=== PATIENT | male | born 1945 | race Caucasian/White ===

== ENCOUNTER → 2018-02-08 18:45 | Outpatient (CLI) | payer MEDICARE, OTHER, SELFPAY | PROVIDERS: Visit Provider Nurse Practitioner Adult Health | DX: R31.0 Gross hematuria (principal) | CPT/HCPCS: 87077; 87086; 87088; 87186 ==

== ENCOUNTER → 2018-02-25 18:40 | Outpatient (CLI) | payer MEDICARE, OTHER, SELFPAY | PROVIDERS: Visit Provider Urology | DX: R82.99 Other abnormal findings in urine (principal) | CPT/HCPCS: 87077; 87086; 87088; 87186 ==

== ENCOUNTER → 2020-07-31 | Outpatient (CLI) | payer MEDICARE, OTHER, SELFPAY | END | disposition home or self-care (01) | LOC: LABSPEC 16:33 | PROVIDERS: Referring Provider Urology; Visit Provider Urology | DX: N39.0 Urinary tract infection, site not specified (principal) | CPT/HCPCS: 87077; 87086; 87088; 87186 ==

== ENCOUNTER → 2020-12-18 | Outpatient (CLI) | payer MEDICARE, OTHER, SELFPAY | END | disposition home or self-care (01) | LOC: LABSPEC 15:50 | PROVIDERS: Referring Provider Urology; Visit Provider Urology | DX: N39.0 Urinary tract infection, site not specified (principal) | CPT/HCPCS: 87077; 87086; 87088; 87186 ==

== ENCOUNTER → 2021-01-08 | Outpatient (CLI) | payer MEDICARE, OTHER, SELFPAY | END | disposition home or self-care (01) | LOC: LABSPEC 15:53 | PROVIDERS: Referring Provider Urology; Visit Provider Urology | DX: N40.1 Benign prostatic hyperplasia with lower urinary tract symptoms (principal) | CPT/HCPCS: 87077; 87086; 87088; 87186 ==

== ENCOUNTER 2021-01-23 12:20 | Day surgery (SDC) | payer MEDICARE, OTHER, SELFPAY ==
--- NOTE | 2021-01-21 12:59 | EKG12_ITS ---
Test Reason : PREOP Blood Pressure : / mmHG Vent. Rate : 063 BPM Atrial Rate : 063 BPM P-R Int : 140 ms QRS Dur : 092 ms QT Int : 386 ms P-R-T Axes : 036 075 078 degrees QTc Int : 395 ms Normal sinus rhythm Normal ECG Confirmed by JENNIE CROFT, LUNA ([id number]), newspaper photo editor TIFFANY WALKER ([id number]) on 01/23/2021 9:33:25 AM Referred By: Leeroy Olivera Confirmed By:LUNA SCHNEIDER MD
[2021-01-21 13:32] LABS: Hematocrit 50.7 % (40-54); Hemoglobin 16.3 g/dL (13.0-16.5); Mean Corp Hgb Conc 32.1 g/dL (32-36); Mean Corpuscular Volume 105.6 fL (80-94); Mean Platelet Vol. 10.4 fl (6.2-12.0); Platelet Count 166 K/mm3 (150-450); RBC Distribution Width CV 13.6 % (11.6-14.6); White Blood Count 10.7 K/mm3 (4.4-11.0)
[2021-01-21 13:58] LABS: Anion Gap 5 (5-15); BUN 31 mg/dL (7-18); BUN/Creat Ratio 14.5 RATIO (10-20); Calcium,Total 8.9 mg/dL (8.5-10.1); Chloride 106 mmol/L (98-107); Creatinine, Serum 2.14 mg/dL (0.70-1.30); EST Glomerular Filtration Rate 32 mL/min (>60); Est Glom Filt Rate - Afr Amer 39 mL/min (>60); Glucose 107 mg/dL (74-106); Potassium 4.6 mmol/L (3.5-5.1); Sodium Level 137 mmol/L (136-145)
[2021-01-23] VITALS (13 sets, daily range): BP systolic 108–157; BP diastolic 55–82; PULSE 66–79; RESP 16–18; TEMP 36.4–37.1; O2SAT 80–100; BMI 25.0
--- NOTE | 2021-01-23 | PROS_PTH ---
PATIENT: SPENSER ZUNIGA LOC: [facility] [place] U#:[id number] AGE/SX: 75/M ROOM: RE01/23/[address]: Dr. Leeroy Olivera MD : [id number] BED: DIS: 01/24/2021 SPEC #: [id number] RECD: 01/24/21 09:08 STATUS: RAMA WITT #: [id number] JANET: 01/23/21 00:[address]: Leeroy Olivera DEPT: SURGICAL PATHOLOGY RECD BY: Adam Peters ENTERED: 01/24/21 09:08 SP TYPE: TURP OTHR DR: Dr. Carissa Ayala MD Tissues: Prostate, NOS Procedures: Surgery Specimen Level IV HEADER OPERATION: Cysto, TUR prostate, [employer] PRE-OP DIAGNOSIS: BPH with obstruction TISSUE SUBMITTED: Prostate chips MICROSCOPIC DIAGNOSIS Prostate, transurethral resection: Benign nodular hyperplasia, glandular and stromal types. Chronic prostatitis. Focal acute prostatitis. Urothelium with mild chronic inflammation. AM:syd 01/25/2021 MICROSCOPIC DESCRIPTION Slides are reviewed. GROSS DESCRIPTION Received is one container labeled with the patient's name and designated prostate chips. The specimen consists of multiple irregular fragments of pink-ruiz, rubbery, soft tissue that in aggregate weigh 3.7 gm and measure in aggregate 9 x 3 x 0.2 cm. Also present in the specimen container are multiple black calculi ranging in size from 0.1 to 0.2 cm. The soft tissue is submitted in its entirety in three cassettes. / AM:syd 01/24/21 TC:2 CPT: 52101
[2021-01-23] MEDS: Lactated Ringers 1,000 ML 100 ML IV ×2 (12:50→17:51)
--- NOTE | 2021-01-23 15:20 | PCM.HP.STD ---
Problem List (1) BPH with obstruction/lower urinary tract symptoms Status: Acute History of Present Illness Date of Admission: 01/23/21 Chief Complaint: BPH with obstruction The patient is a 75 year old male with enlarged prostate presents today for transurethral resection of the prostate. Past Medical History Allergies codeine Allergy (Verified 01/23/21 12:57) Swelling bandaids Adverse Reaction (Uncoded 01/23/21 12:57) skin break down Home Medications: Ambulatory Orders Medication Instructions Recorded Albuterol IH (ProAir) [Proair Hfa 1 - 2 puff INHALATION Q6H PRN PRN 01/16/21 (SP)Vent Pts] Allopurinol [Zyloprim] 100 mg PO DAILYCM 01/16/21 Aspirin [Aspirin EC] 81 mg PO BID 01/16/21 Bifidobacterium Infantis [Align] 4 mg PO QHS 01/16/21 Cholecalciferol (VIT D3) [Vitamin 1,000 unit PO DAILY 01/16/21 D] Cilostazol [Pletal] 50 mg PO BIDAC 01/16/21 Diltiazem CD [Cardizem CD] 180 mg PO QHS 01/16/21 Lovastatin [Mevacor] 20 mg PO DAILY 01/16/21 Metoprolol Tartrate [Lopressor 100 mg PO BID 01/16/21 (Beta Chris)] Multivitamin with Minerals 1 ea PO DAILY 01/16/21 [Multiple Vitamin] Omeprazole [Prilosec] 20 mg PO DAILY 01/16/21 Pyridoxine HCl (Vitamin B6) 100 mg PO DAILY 01/16/21 [Vitamin B-6] Sodium Bicarbonate 650 mg PO DAILY 01/16/21 Terazosin HCl [Hytrin] 2 mg PO QHS 01/16/21 Umeclidinium Brm/Vilanterol Tr 1 puff IH QHS 01/16/21 [Anoro Ellipta 62.5-25 Mcg INH] Surgical History: no surgical history Smoking Status: Current every day smoker Tobacco Use: Cigarettes Review of Systems Constitutional: Denies: Chills, Fever, Weight Change HEENT: Denies: Head Aches, Sinus Congestion, Sinus Drainage Cardiovascular: Denies: Chest Pain, Palpitations Respiratory: Denies: Cough, Shortness of breath at rest, Sputum production Gastrointestinal: Denies: Abdominal Pain, Nausea, Vomiting Genitourinary: Denies: Dysuria Musculoskeletal: Denies: Joint Pain, Joint Tenderness Skin: Denies: Rash, Wounds Neurological: Denies: Numbness, Tingling, Focal weakness Psychiatric: Denies: Anxiety, Depression, Homicidal Ideations, Suicidal Ideations Hematologic/ Lymphatic: Denies: Easy Bruising, Easy Bleeding VTE Information - Inpt Only VTE Present on Admission: No VTE Mechan Device Prophylaxis: SCD's - Physical Exam Vitals/I&O's: Vital Signs Temp Pulse Resp BP Pulse Ox 98.5 F 67 18 144/73 H 94 01/23/21 12:58 01/23/21 12:58 01/23/21 12:58 01/23/21 12:58 01/23/21 12:58 Oxygen Delivery Method Room Air Weight: 72.6 kg Body Mass Index (BMI) 25.0 General: Alert, Oriented x3, Cooperative HEENT: Atraumatic, PERRLA, EOMI, Normocephalic Neck: Supple, No JVD, Negative Carotid Bruits Lungs: Clear to auscultation, Normal air movement Cardiovascular: Regular rate, No murmurs Abdomen: Bowel Sounds Present, Soft, Non Tender Extremities: No edema, Capillary Refill Less than 3 Seconds Skin: No rashes, No breakdown Musculoskeletal: No Tenderness to Palpation of Joints or Extremities Neurological: Cranial nerves II-XII grossly intact Psych/Mental Status: Normal Affect, Appropriate Microbiology Past 72 Hours 01/21/21 13:15 Interface Orders SARS-CoV-2 Antigen (Rapid) - Final Current Medications Lactated Ringer's () 1,000 mls @ 100 mls/hr IV .Q10H OUMAR Last Admin: 01/23/21 12:50 Dose: 100 mls/hr Documented by: Assessment/Plan All Active Problems BPH with obstruction/lower urinary tract symptoms (Acute) Plan to proceed with a TURP
[2021-01-23] MEDS: Cefazolin 2 GM in 0.9% Normal Saline 100 ML IV (15:21)
--- NOTE | 2021-01-23 15:26 | DCINST_ITS ---
Discharge Diet: Light diet - advance as tolerated Discharge Activity: Return to Normal Activity Call your doctor if your incision/area has: Sudden Increased Bleeding, Increased Pain/ Swelling, Increased Redness Call your doctor if you observe: Fever of 101 or Higher Instructions: Transurethral Resection of the Prostate (TURP): Home Recovery Allergies/Adverse Reactions: Allergies codeine Allergy (Verified 01/23/21 12:57) Swelling bandaids Adverse Reaction (Uncoded 01/23/21 12:57) skin break down Medications to take at Discharge Albuterol IH (ProAir) [Proair Hfa (SP)Vent Pts] 1 - 2 puff INHALATION Q6H PRN PRN 01/16/21 Allopurinol [Zyloprim] 100 mg PO DAILYCM 01/16/21 Aspirin [Aspirin EC] 81 mg PO BID 01/16/21 Bifidobacterium Infantis [Align] 4 mg PO QHS 01/16/21 Cholecalciferol (VIT D3) [Vitamin D] 1,000 unit PO DAILY 01/16/21 Cilostazol [Pletal] 50 mg PO BIDAC 01/16/21 Diltiazem CD [Cardizem CD] 180 mg PO QHS 01/16/21 Lovastatin [Mevacor] 20 mg PO DAILY 01/16/21 Metoprolol Tartrate [Lopressor (Beta Chris)] 100 mg PO BID 01/16/21 Multivitamin with Minerals [Multiple Vitamin] 1 ea PO DAILY 01/16/21 Omeprazole [Prilosec] 20 mg PO DAILY 01/16/21 Pyridoxine HCl (Vitamin B6) [Vitamin B-6] 100 mg PO DAILY 01/16/21 Sodium Bicarbonate 650 mg PO DAILY 01/16/21 Terazosin HCl [Hytrin] 2 mg PO QHS 01/16/21 Umeclidinium Brm/Vilanterol Tr [Anoro Ellipta 62.5-25 Mcg INH] 1 puff IH QHS 01/16/21 Ciprofloxacin [Cipro] 500 mg PO BID #10 tablet 01/23/21 Ibuprofen 600 mg PO Q6H PRN PRN #20 tablet 01/23/21 The following prescriptions were given: Ciprofloxacin [Cipro] 500 mg PO BID #10 tablet Transmission Status: Received by [id number] Ibuprofen 600 mg PO Q6H PRN PRN #20 tablet PRN Reason: Pain 1-10 Or Fever Transmission Status: Received by [id number] Primary Care Physician: Carissa Ayala MD [Primary Care Provider] - Test Results: Test results from this visit will be discussed in further detail at your follow- up appointment, if applicable. Please Follow Up With: Leeroy Olivera MD When: in 2 weeks, please call to make an appointment.
--- NOTE | 2021-01-23 16:08 | OP.PCM_ITS ---
Problem List (1) BPH with obstruction/lower urinary tract symptoms Status: Acute Report of Operation Date of Procedure: 01/23/21 Pre-Operative Diagnosis: BPH with obstruction Post-Operative Diagnosis: Same Surgery/Procedure Performed:: TURP Description of Surgical Findings:: In the preoperative setting I discussed with the patient how the surgery would be done with expect afterwards. We discussed how a prostate resection is done and we discussed the risk of the surgery including, bleeding, infection, retrograde ejaculation, changes with ejaculation or intercourse,. We discussed the possibility that the resection of the prostate may not alleviate his urinary symptoms. We discussed the small risk of developing scar tissue along the urethral channel and strictures. We also discussed the chance of the prostate could grow back and he may need further surgery or treatment in the future for prostate problems. Patient was taken back to the operating room, timeout procedure was performed, he was identified and marked and placed on the operating room table. He underwent general anesthesia. He was placed in dorsolithotomy position. Penis and testicles were prepped and draped in usual sterile fashion. Went into the bladder using the visual obturator with a resectoscope. Once inside the bladder identified the right and left ureteral orifice. I then identified the prostate and the anatomy of the prostate. I marked out the area of the sphincter and the verumontanum was identified. I then proceeded with the prostate resection first resected the median lobe. And then resected the right lobe of the prostate. Then to resect the left lobe of the prostate. I then resected the apical tissue of the prostate. Made sure that there was no injury to the sphincter or the verumontanum was still intact. At the end of the resection all the chips were Ellik out of the bladder. I then identified the left and right ureteral orifice and these were confirmed to be in good position and effluxing and not injured. The resectoscope was removed, a 22 Lithuanian catheter was placed into the bladder on continuous irrigation. And the urine was fairly light pink color and draini ng normally. He was taken back to the PACU in good condition. Type of Anesthesia:: General Drains: 22fr 3 way - Admit VTE Documentation VTE Present on Admission: No VTE Mechan Device Prophylaxis: SCD's
--- NOTE | 2021-01-23 18:23 | SUR.PHASEI ---
Patient held in PACU after recovery because patient's room was not clean and available at the time. VSS. Patient was monitored throughout stay. CBI managed, clear, no clots.
[2021-01-23] MEDS: 0.9% Normal Saline 1,000 ML 75 ML IV (19:09)
[2021-01-23] MEDS: Metoprolol Tartrate 100 MG Tablet PO (21:06)
[2021-01-23] MEDS: Docusate Sodium 100 MG Capsule PO (21:07)
[2021-01-23] MEDS: Aspirin E.C. 81 MG Tablet PO (21:07)
[2021-01-23] MEDS: Ibuprofen 600 MG Tablet PO (21:07)
[2021-01-23] MEDS: Atorvastatin Calcium 10 MG Tablet PO (21:08)
[2021-01-23] MEDS: Cilostazol 50 MG Tablet PO (21:08)
[2021-01-23] MEDS: Ciprofloxacin 400 MG/200 ML BAG 200 MG IV (21:09)
[2021-01-24 02:58] VITALS: BP 110/60; PULSE 71; RESP 18; TEMP 36.6; O2SAT 94
[2021-01-24] MEDS: Lactated Ringers 1,000 ML 100 ML IV (04:10)
[2021-01-24 06:39] VITALS: BP 121/69; PULSE 69; RESP 18; TEMP 36.5; O2SAT 94
[2021-01-24] MEDS: Cilostazol 50 MG Tablet PO (06:45)
[2021-01-24 07:15] VITALS: O2SAT 94
[2021-01-24] MEDS: Aspirin E.C. 81 MG Tablet PO (08:17)
[2021-01-24] MEDS: Allopurinol 100 MG Tablet PO (08:18)
[2021-01-24] MEDS: Multivitamins,Ther W-Minerals Tablet 1 TABLET PO (08:18)
[2021-01-24 08:30] VITALS: BP 127/84; PULSE 80; RESP 18; TEMP 36.6; O2SAT 94
[2021-01-24] MEDS: Sodium Bicarbonate 650 MG Tablet PO (08:30)
[2021-01-24] MEDS: Pantoprazole Sodium 40 MG Tablet PO (08:30)
[2021-01-24] MEDS: Metoprolol Tartrate 100 MG Tablet PO (08:30)
[2021-01-24] MEDS: 0.9% Saline Lock 10 ML Syringe IV (09:00)
[2021-01-24] MEDS: Ciprofloxacin 400 MG/200 ML BAG 200 MG IV (09:00)
--- NOTE | 2021-01-24 09:37 | PHA.DC.MC ---
Pharmacy Service has performed discharge medication reconciliation and counseling for this patient. The patient was counseled on the following discharge medications and changes in medications for homegoing were reviewed. 1. CIPRO 2. IBUPROFEN The Reason for Use, instructions for use, and potential side effects were reviewed for all new medications. The patient's questions regarding all of their medications were answered. The patient was able to verbally demonstrate an understanding of their discharge medications. Home Medications Albuterol IH (ProAir) [Proair Hfa (SP)Vent Pts] 1 - 2 puff INHALATION Q6H PRN PRN 01/16/21 Allopurinol [Zyloprim] 100 mg PO DAILYCM 01/16/21 Aspirin [Aspirin EC] 81 mg PO BID 01/16/21 Bifidobacterium Infantis [Align] 4 mg PO QHS 01/16/21 Cholecalciferol (VIT D3) [Vitamin D] 1,000 unit PO DAILY 01/16/21 Cilostazol [Pletal] 50 mg PO BIDAC 01/16/21 Diltiazem CD [Cardizem CD] 180 mg PO QHS 01/16/21 Lovastatin [Mevacor] 20 mg PO DAILY 01/16/21 Metoprolol Tartrate [Lopressor (Beta Chris)] 100 mg PO BID 01/16/21 Multivitamin with Minerals [Multiple Vitamin] 1 ea PO DAILY 01/16/21 Omeprazole [Prilosec] 20 mg PO DAILY 01/16/21 Pyridoxine HCl (Vitamin B6) [Vitamin B-6] 100 mg PO DAILY 01/16/21 Sodium Bicarbonate 650 mg PO DAILY 01/16/21 Terazosin HCl [Hytrin] 2 mg PO QHS 01/16/21 Umeclidinium Brm/Vilanterol Tr [Anoro Ellipta 62.5-25 Mcg INH] 1 puff IH QHS 01/16/21 Ciprofloxacin [Cipro] 500 mg PO BID #10 tablet 01/23/21 Ibuprofen 600 mg PO Q6H PRN PRN #20 tablet 01/23/21 The patient's discharge medication list was reviewed for discrepancies and discrepancies were resolved.
== END 2021-01-24 07:37 | disposition home or self-care (01) ==
LOC: SDC 12:21 → AC 12:21 → PCU 01-24 07:55
PROVIDERS: Anesthesiology; PCP Family Medicine; Referring Provider Urology; Visit Provider Urology
PROC: (CPT 52630; principal; 2021-01-23 14:15)
DX: N41.0 Acute prostatitis (principal); N41.1 Chronic prostatitis; N40.1 Benign prostatic hyperplasia with lower urinary tract symptoms; N13.8 Other obstructive and reflux uropathy; F17.210 Nicotine dependence, cigarettes, uncomplicated; K21.9 Gastro-esophageal reflux disease without esophagitis; I12.9 Hypertensive chronic kidney disease with stage 1 through stage 4 chronic kidney disease, or unspecified chronic kidney disease; N18.30 Chronic kidney disease, stage 3 unspecified; Z20.822 Contact with and (suspected) exposure to COVID-19; Z79.899 Other long term (current) drug therapy
CPT/HCPCS: 52630; 36415; 80048; 85027; 87426; 88305; 93005; 99406; C9803; J7030; J7120; A4216; J0744; J2405

== ENCOUNTER → 2021-09-04 15:56 | Outpatient (CLI) | payer MEDICARE, OTHER, SELFPAY ==
[2021-09-04 18:32] LABS: CRP < 2.90 mg/L (0.0-3.0)
[2021-09-06 16:09] LABS: Endomysial Antibody IgA Negative (Negative)
[2021-09-07 23:33] LABS: Immunoglobulin A 338 mg/dL (61-437); t-Transglutaminase IgA <2 U/mL (0-3)
== END ==
PROVIDERS: PCP Family Medicine; Referring Provider Internal Medicine Gastroenterology; Visit Provider Internal Medicine Gastroenterology
DX: R19.7 Diarrhea, unspecified (principal)
CPT/HCPCS: 36415; 82784; 83516; 86140; 86255

== ENCOUNTER → 2024-05-10 | Outpatient (CLI) | payer MEDICARE, OTHER, SELFPAY | END | disposition home or self-care (01) | PROVIDERS: PCP Family Medicine; Visit Provider Urology | DX: R31.0 Gross hematuria (principal) | CPT/HCPCS: 87077; 87086; 87088; 87186 ==

== ENCOUNTER → 2024-07-14 | Outpatient (CLI) | payer MEDICARE, OTHER, SELFPAY | END | disposition home or self-care (01) | LOC: LABSPEC 16:18 | PROVIDERS: PCP Family Medicine; Referring Provider Urology; Visit Provider Urology | DX: N40.1 Benign prostatic hyperplasia with lower urinary tract symptoms (principal) | CPT/HCPCS: 87086; 87088 ==